=== PATIENT | female | born 1965 | race Caucasian/White ===

== ENCOUNTER → 2017-04-15 | Outpatient (CLI) | payer BC, OTHER | LOC: BMCIMAGING 10:41 | PROVIDERS: ATTEND Nurse Practitioner Adult Health | DX: N64.4 Mastodynia (principal) | CPT/HCPCS: G0204 ==

== ENCOUNTER 2017-10-07 17:49 | Emergency (ER) | payer BC ==
[2017-10-07] MEDS ORDERED: NS 1,000 ML IV ONE ×2 (18:07)
[2017-10-07] MEDS ORDERED: ONDANSETRON 4 MG/2 ML VIAL IVP ONE (18:07)
--- NOTE | 2017-10-07 18:09 | EDPHY ---
H & P Stated Complaint: N/V since 0800, Time Seen by Provider: 10/07/17 17:50 HPI/ROS: CHIEF COMPLAINT: Nausea vomiting HISTORY OF PRESENT ILLNESS: The patient is a 52-year-old healthy female who comes to the emergency department complaining of nausea and vomiting that began 8 o'clock this morning. She was asymptomatic yesterday. She had a normal bowel movement today. No fever. She denies abdominal pain or tenderness. She has a history of several abdominal hernia repairs but no intestinal surgery. No blood in her vomit. No vaginal or urinary symptoms. REVIEW OF SYSTEMS: Constitutional: denies: chills, fever, recent illness, recent injury EENTM: denies: blurred vision, double vision, nose congestion Respiratory: denies: cough, shortness of breath Cardiac: denies: chest pain, irregular heart rate, lightheadedness, palpitations Gastrointestinal/Abdominal: See HPI Genitourinary: denies: dysuria, frequency, hematuria, pain Musculoskeletal: denies: joint pain, muscle pain Skin: denies: lesions, rash, jaundice, bruising Neurological: denies: headache, numbness, paresthesia, tingling, dizziness, weakness Hematologic/Lymphatic: denies: blood clots, easy bleeding, easy bruising Immunologic/allergic: denies: HIV/AIDS, transplant EXAM: GENERAL: Well-appearing, well-nourished and in no acute distress. HEAD: Atraumatic, normocephalic. EYES: Pupils equal round and reactive to light, extraocular movements intact, sclera anicteric, conjunctiva are normal. ENT: TMs normal, nares patent, oropharynx clear without exudates. Moist mucous membranes. NECK: Normal range of motion, supple without lymphadenopathy or JVD. LUNGS: Breath sounds clear to auscultation bilaterally and equal. No wheezes rales or rhonchi. HEART: Regular rate and rhythm without murmurs, rubs or gallops. ABDOMEN: Slightly distended, nontender, normoactive bowel sounds. No guarding , no rebound. No masses appreciated. BACK: No CVA tenderness, no spinal tenderness, step-offs or deformities EXTREMITIES: Normal range of motion, no pitting or edema. No clubbing or cyanosis. NEUROLOGICAL: Cranial nerves II through XII grossly intact. Normal speech, normal gait. 5/5 strength, normal movement in all extremities, normal sensation PSYCH: Normal mood, normal affect. SKIN: Warm, dry, normal turgor, no visible rashes or lesions. Source: Patient Exam Limitations: No limitations - Personal History Current Tetanus Diphtheria and Acellular Pertussis (TDAP): Yes - Medical/Surgical History Hx Asthma: No Hx Chronic Respiratory Disease: No Hx Diabetes: No Hx Cardiac Disease: Yes Hx Renal Disease: No Hx Cirrhosis: No Hx Alcoholism: Yes Hx HIV/AIDS: No Hx Splenectomy or Spleen Trauma: No Other PMH: hernia/abd wall sugical repair 2016 ,htn,gerd - Family History Significant Family History: No pertinent family hx - Social History Smoking Status: Never smoked Alcohol Use: Sober Drug Use: None Constitutional: Initial Vital Signs Temperature (C) 36.6 C 10/07/17 17:50 Heart Rate 78 10/07/17 17:50 Respiratory Rate 18 10/07/17 17:50 Blood Pressure 174/129 H 10/07/17 17:50 O2 Sat (%) 99 10/07/17 17:50 O2 Delivery Mode Room Air Allergies/Adverse Reactions: No Known Allergies Allergy (Unverified 10/16/14 10:54) Home Medications: Medication Instructions Recorded Atenolol [Tenormin] 25 mg PO DAILY 10/16/14 Sertraline HCl [Zoloft] 25 mg PO DAILY 10/16/14 levOFLOXACIN [levAQUIN] 750 mg PO DAILY #3 tab 10/16/14 metroNIDAZOLE [Flagyl] 500 mg PO TID #15 tab 10/16/14 Promethazine HCl [Phenergan 25mg 25 mg PO TID PRN #10 tab 10/07/17 (RX)] Medical Decision Making ED Course/Re-evaluation: 655 patient states that she still feels nauseous but is no longer vomiting. She continues to deny abdominal pain. Her abdominal exam remains benign. I will treat with Phenergan and continue fluids. 7:35 p.m. the patient states that she is feeling completely better. She is eager to go home. She declines further workup or testing or observation. She is asking for prescription for Phenergan. Her abdominal exam remains benign. Differential Diagnosis: Partial list of the Differential diagnosis considered include but were not limited to; gastritis, food poisoning, peptic ulcer disease, withdrawal, intoxication and although unlikely based on the history and physical exam, I also considered head injury, obstruction, ischemia, appendicitis, biliary disease, . I discussed these differential diagnoses and the plan with the patient as well as the usual and expected course. The patient understands that the diagnosis is provisional and that in medicine we are not always correct and that further workup is often warranted. Usual and customary warnings were given. All of the patient's questions were answered. The patient was instructed to return to the emergency department should the symptoms at all worsen or return, otherwise to followup with the physician as we discussed. - Data Points Laboratory Results: Laboratory Results 10/07/17 18:13 10/07/17 18:13 18 18 10/07/17 18:13 18:13 18:13 WBC 4.43 10^3/uL 10^3/uL (3.80-9.50) RBC 4.06 10^6/uL L 10^6/uL (4.18-5.33) Hgb 11.2 g/dL L g/dL (12.6-16.3) Hct 34.4 % L % (38.0-47.0) MCV 84.7 fL fL (81.5-99.8) MCH 27.6 pg L pg (27.9-34.1) MCHC 32.6 g/dL g/dL (32.4-36.7) RDW 15.1 % % (11.5-15.2) Plt Count 319 10^3/uL 10^3/uL (150-400) MPV 9.4 fL fL (8.7-11.7) Neut % (Auto) 45.2 % % (39.3-74.2) Lymph % (Auto) 36.6 % % (15.0-45.0) [place] % (Auto) 13.3 % H % (4.5-13.0) Eos % (Auto) 0.9 % % (0.6-7.6) Baso % (Auto) 3.8 % H % (0.3-1.7) Nucleat RBC Rel Count 0.0 % % (0.0-0.2) Absolute Neuts (auto) 2.00 10^3/uL 10^3/uL (1.70-6.50) Absolute Lymphs (auto) 1.62 10^3/uL 10^3/uL (1.00-3.00) Absolute Monos (auto) 0.59 10^3/uL 10^3/uL (0.30-0.80) Absolute Eos (auto) 0.04 10^3/uL 10^3/uL (0.03-0.40) Absolute Basos (auto) 0.17 10^3/uL H 10^3/uL (0.02-0.10) Absolute Nucleated RBC 0.00 10^3/uL 10^3/uL (0-0.01) Immature Gran % 0.2 % % (0.0-1.1) Immature Gran # 0.01 10^3/uL 10^3/uL (0.00-0.10) Sodium 139 mEq/L mEq/L (135-145) Potassium 4.1 mEq/L mEq/L (3.5-5.2) Chloride 100 mEq/L mEq/L (97-110) Carbon Dioxide 23 mEq/l mEq/l (22-31) Anion Gap 16 mEq/L mEq/L (8-16) BUN 10 mg/dL mg/dL (7-23) Creatinine 0.7 mg/dL mg/dL (0.6-1.0) Estimated GFR > 60 Glucose 113 mg/dL H mg/dL (70-100) Calcium 8.8 mg/dL mg/dL (8.5-10.4) Total Bilirubin 0.5 mg/dL mg/dL (0.1-1.4) Conjugated Bilirubin 0.4 mg/dL mg/dL (0.0-0.5) Unconjugated Bilirubin 0.1 mg/dL mg/dL (0.0-1.1) AST 162 IU/L H IU/L (14-46) ALT 111 IU/L H IU/L (9-52) Alkaline Phosphatase 92 IU/L IU/L (38-126) Total Protein 7.9 g/dL g/dL (6.3-8.2) Albumin 4.3 g/dL g/dL (3.5-5.0) Lipase 207 IU/L IU/L (23-300) Beta HCG, Qual NEGATIVE Medications Given: Discontinued Medications Sodium Chloride (Ns) 1,000 mls @ 0 mls/hr IV EDNOW ONE; Wide Open PRN Reason: Protocol Stop: 10/07/17 18:08 Last Admin: 10/07/17 18:19 Dose: 1,000 mls Sodium Chloride (Ns) 1,000 mls @ 0 mls/hr IV EDNOW ONE; Wide Open PRN Reason: Protocol Stop: 10/07/17 18:08 Last Admin: 10/07/17 18:20 Dose: 1,000 mls Ondansetron HCl (Zofran) 4 mg IVP EDNOW ONE Stop: 10/07/17 18:08 Last Admin: 10/07/17 18:20 Dose: 4 mg Promethazine HCl (Phenergan) 25 mg IVP EDNOW ONE Stop: 10/07/17 18:56 Last Admin: 10/07/17 18:58 Dose: 25 mg Departure - Departure Disposition: Home, Routine, Self-Care Clinical Impression: Vomiting Qualifiers: Vomiting type: unspecified Vomiting Intractability: non-intractable Nausea presence: with nausea Qualified Code(s): R11.2 - Nausea with vomiting, unspecified Condition: Fair Instructions: Acute Nausea and Vomiting (ED) Referrals: ELIAS VICTOR [Other] - As per Instructions Prescriptions: Promethazine HCl [Phenergan 25mg (RX)] 25 mg PO TID PRN #10 tab PRN Reason: Nausea & Vomiting
[2017-10-07 18:25] LABS: PLATELET COUNT 319 10^3/uL (150-400)
[2017-10-07] MEDS ORDERED: PROMETHAZINE HCL 25 MG/ML INJ IVP ONE (18:55)
[2017-10-07 20:10] VITALS: BP 152/79
== END 2017-10-07 20:10 | disposition home or self-care (01) ==
DX: R11.2 Nausea with vomiting, unspecified (principal); E86.9 Volume depletion, unspecified
CPT/HCPCS: 96374; J2405; J2550

== ENCOUNTER 2017-11-10 15:37 | Inpatient (IN) | payer BC ==
[2017-11-10] MEDS ORDERED: NS 500 ML IV ONE ×2 (16:06→16:56)
--- NOTE | 2017-11-10 16:10 | CPEKG ---
Heart Rate: 82 RR Interval: 732 P-R Interval: 156 QRSD Interval: 82 QT Interval: 396 QTC Interval: 463 P Wilcox: 42 QRS Wilcox: 56 T Wave Wilcox: 55 EKG Severity - NORMAL ECG - EKG Impression: SINUS RHYTHM Electronically Signed By: Jenna Aguila 10-Nov-2017 22:49:43
--- NOTE | 2017-11-10 16:17 | EDPHY ---
H & P Time Seen by Provider: 11/10/17 15:51 HPI/ROS: CHIEF COMPLAINT: Fainting HISTORY OF PRESENT ILLNESS: Patient is a 52-year-old female who has had multiple near syncopal and syncopal type episodes. The 1st occurred yesterday while at a softball game. She was watching the game. She felt mildly dizzy. Her vision change. She became very diaphoretic. She almost passed out. She states there is the mathematics academic chair there who"talk me through it."The mathematics academic chair recommended she have her thyroid checked. Today the patient had a repeat episode while with family. She became completely blank and fell. This lasted for less than 1 min. She denies harming herself during the fall. When she awoke she denies any chest pain, shortness of breath or headache. Patient's symptoms resolved until a 3rd episode occurred. Again this was witnessed by her family. She became stiff and shaky. She stared off in space. She had complete blank look for less than 1 min. She then awoke and returned to baseline. Patient has no complaints at this time. REVIEW OF SYSTEMS: My complete review of systems is negative except as mentioned in the HPI. Past Medical/Surgical History: Hernia, hypertension, GERD, anemia, neck pain Past surgical history: Includes neck ablation, hernia repair Social history: The patient does not smoke. She denies drugs. Smoking Status: Never smoked Physical Exam: Vitals noted. 97/66. Heart rate 90. GENERAL: Well-appearing, in no acute distress, alert. HEENT: Eyes normal to inspection, normal pharynx, no signs of dehydration. NECK: [No thyromegaly, no lymphadenopathy, supple. RESPIRATORY: Clear to auscultation bilaterally, no rales, rhonchi or wheezing. CVS: Regular rate and rhythm, no rubs, murmurs, or gallops. ABDOMEN: Soft, nontender, nondistended, no organomegaly. BACK: Normal to inspection, no CVA tenderness. SKIN: Normal color, no rash, warm, dry. No pallor. EXTREMITIES: No pedal edema, no calf tenderness, no Homans sign or cords, no joint swelling. NEURO/PSYCH: Higher functions: Alert and Oriented x3. Normal speech and cognition. Normal mood and affect. Cranial nerves: Normal as tested. Cerebellar: Normal as tested. Good finger to nose, good [id number], normal gait. Peripheral exam: Normal motor exam. Normal sensation. Normal reflexes. Constitutional: Initial Vital Signs Temperature (C) 36.9 C 11/10/17 15:43 Heart Rate 90 11/10/17 15:43 Respiratory Rate 17 11/10/17 15:43 Blood Pressure 97/66 L 11/10/17 15:43 O2 Sat (%) 95 11/10/17 15:43 O2 Delivery Mode Room Air Allergies/Adverse Reactions: No Known Allergies Allergy (Verified 11/10/17 15:39) Home Medications: Medication Instructions Recorded Sertraline HCl [Zoloft] 25 mg PO DAILY 10/16/14 Acetaminophen [Tylenol 325mg (*)] 650 mg PO Q6 PRN 11/10/17 Cyclobenzaprine [Flexeril 10 MG 10 mg PO TID 11/10/17 (*)] Ibuprofen [Motrin (*)] 200 - 400 mg PO TID PRN 11/10/17 Losartan Potassium [Cozaar 50 mg 100 mg PO DAILY 11/10/17 (*)] Nebivolol HCl [Bystolic] 5 mg PO DAILY 11/10/17 traMADol [Ultram 50 mg (*)] 50 mg PO DAILY 11/10/17 Medical Decision Making - Diagnostics Imaging Results: Imaging Impressions Chest X-Ray 11/10/17 16:07 Impression: No evidence for acute cardiopulmonary abnormality. Hiatal hernia. ED Course/Re-evaluation: In the emergency department I discussed possible etiologies with the patient. I answered all her questions. IV was placed. Laboratory studies were obtained. Patient was given normal saline for hydration. EKG shows normal sinus rhythm, normal rate, normal axis, normal intervals. There are no ST or T-wave abnormalities. EKG is normal as interpreted by me. I reviewed the patient's laboratory studies. His CBC showed a mild anemia with hematocrit 32. Previous hematocrit was 34. The patient's chemistry panel showed a sodium 140 and potassium of 4.2. Chloride was 102. Carbon dioxide was low at 21. Anion gap was elevated at 17. BUN was elevated 24 and creatinine was elevated 1.5. Glucose was normal 111. Total bilirubin was normal. AST and ALT were elevated at 190 01/12/2011 respectively. Troponin was negative. Lipase elevated at 374. Repeat blood pressure was 81/60. I rechecked the patient. She was not lightheaded or dizzy. She was given normal saline 500 mL IV. Rechecked the patient on numerous occasions. She was stable throughout her stay. I discussed case with Dr. Martinez. He will admit the patient for further care. Differential Diagnosis: My differential includes but is not limited to near-syncope, syncope, dysrhythmia, ACS, acute NE, electrolyte abnormality, sugar abnormality, dehydration - Data Points Laboratory Results: Laboratory Results 11/10/17 16:08 11/10/17 16:08 11/10/17 11/10/17 11/10/17 16:08 16:08 16:08 WBC RBC Hgb Hct MCV MCH MCHC RDW Plt Count MPV Neut % (Auto) Lymph % (Auto) [place] % (Auto) Eos % (Auto) Baso % (Auto) Nucleat RBC Rel Count Absolute Neuts (auto) Absolute Lymphs (auto) Absolute Monos (auto) Absolute Eos (auto) Absolute Basos (auto) Absolute Nucleated RBC Immature Gran % Immature Gran # PT 14.6 SEC SEC (12.0-15.0) INR 1.12 (0.83-1.16) APTT 25.8 SEC SEC (23.0-38.0) Sodium 140 mEq/L mEq/L (135-145) Potassium 4.2 mEq/L mEq/L (3.5-5.2) Chloride 102 mEq/L mEq/L (97-110) Carbon Dioxide 21 mEq/l L mEq/l (22-31) Anion Gap 17 mEq/L H mEq/L (8-16) BUN 24 mg/dL H mg/dL (7-23) Creatinine 1.5 mg/dL H mg/dL (0.6-1.0) Estimated GFR 36 Glucose 111 mg/dL H mg/dL (70-100) Calcium 9.4 mg/dL mg/dL (8.5-10.4) Total Bilirubin 0.5 mg/dL mg/dL (0.1-1.4) Conjugated Bilirubin 0.4 mg/dL mg/dL (0.0-0.5) Unconjugated Bilirubin 0.1 mg/dL mg/dL (0.0-1.1) AST 197 IU/L H IU/L (14-46) ALT 111 IU/L H IU/L (9-52) Alkaline Phosphatase 96 IU/L IU/L (38-126) Troponin I < 0.012 ng/mL ng/mL (0.000-0.034) Total Protein 8.3 g/dL H g/dL (6.3-8.2) Albumin 4.5 g/dL g/dL (3.5-5.0) Lipase 374 IU/L H IU/L (23-300) TSH 5.660 uIU/mL H uIU/mL (0.465-4.680) Beta HCG, Qual NEGATIVE Urine Color Urine Appearance Urine pH Ur Specific Cory Urine Protein Urine Ketones Urine Blood Urine Nitrate Urine Bilirubin Urine Urobilinogen Ur Leukocyte Esterase Urine Glucose 11/10/17 11/10/17 16:08 15:48 WBC 6.03 10^3/uL 10^3/uL (3.80-9.50) RBC 3.97 10^6/uL L 10^6/uL (4.18-5.33) Hgb 10.5 g/dL L g/dL (12.6-16.3) Hct 32.3 % L % (38.0-47.0) MCV 81.4 fL L fL (81.5-99.8) MCH 26.4 pg L pg (27.9-34.1) MCHC 32.5 g/dL g/dL (32.4-36.7) RDW 16.7 % H % (11.5-15.2) Plt Count 220 10^3/uL 10^3/uL (150-400) MPV 10.3 fL fL (8.7-11.7) Neut % (Auto) 49.9 % % (39.3-74.2) Lymph % (Auto) 33.3 % % (15.0-45.0) [place] % (Auto) 12.3 % % (4.5-13.0) Eos % (Auto) 2.0 % % (0.6-7.6) Baso % (Auto) 2.3 % H % (0.3-1.7) Nucleat RBC Rel Count 0.0 % % (0.0-0.2) Absolute Neuts (auto) 3.01 10^3/uL 10^3/uL (1.70-6.50) Absolute Lymphs (auto) 2.01 10^3/uL 10^3/uL (1.00-3.00) Absolute Monos (auto) 0.74 10^3/uL 10^3/uL (0.30-0.80) Absolute Eos (auto) 0.12 10^3/uL 10^3/uL (0.03-0.40) Absolute Basos (auto) 0.14 10^3/uL H 10^3/uL (0.02-0.10) Absolute Nucleated RBC 0.00 10^3/uL 10^3/uL (0-0.01) Immature Gran % 0.2 % % (0.0-1.1) Immature Gran # 0.01 10^3/uL 10^3/uL (0.00-0.10) PT INR APTT Sodium Potassium Chloride Carbon Dioxide Anion Gap BUN Creatinine Estimated GFR Glucose Calcium Total Bilirubin Conjugated Bilirubin Unconjugated Bilirubin AST ALT Alkaline Phosphatase Troponin I Total Protein Albumin Lipase TSH Beta HCG, Qual Urine Color YELLOW Urine Appearance HAZY Urine pH 5.0 (5.0-7.5) Ur Specific Cory 1.011 (1.002-1.030) Urine Protein NEGATIVE (NEGATIVE) Urine Ketones NEGATIVE (NEGATIVE) Urine Blood NEGATIVE (NEGATIVE) Urine Nitrate NEGATIVE (NEGATIVE) Urine Bilirubin NEGATIVE (NEGATIVE) Urine Urobilinogen NEGATIVE EU EU (0.2-1.0) Ur Leukocyte Esterase NEGATIVE (NEGATIVE) Urine Glucose NEGATIVE (NEGATIVE) Medications Given: Acetaminophen (Tylenol) 650 mg PO Q4HRS PRN PRN Reason: Pain, Mild/Fever, Can Take PO Stop: 05/09/18 17:57 Last Admin: 11/10/17 18:42 Dose: 650 mg Discontinued Medications Sodium Chloride (Ns) 500 mls @ 1,000 mls/hr IV EDNOW ONE PRN Reason: Protocol Stop: 11/10/17 16:35 Last Admin: 11/10/17 16:11 Dose: 500 mls Sodium Chloride (Ns) 500 mls @ 0 mls/hr IV ONCE ONE PRN Reason: Wide Open Stop: 11/10/17 16:57 Last Admin: 11/10/17 17:00 Dose: 500 mls Departure - Departure Disposition: [facility] Acute Clinical Impression: Syncope Qualifiers: Syncope type: unspecified Qualified Code(s): R55 - Syncope and collapse Condition: Good
[2017-11-10 16:19] LABS: PLATELET COUNT 220 10^3/uL (150-400)
[2017-11-10 16:28] LABS: INR 1.12 (0.83-1.16); PROTIME(PATIENT) 14.6 SEC (12.0-15.0)
[2017-11-10] MEDS ORDERED: ONDANSETRON DISINTEGRATING 4 MG TAB PO PRN (17:58)
[2017-11-10] MEDS ORDERED: ONDANSETRON 4 MG/2 ML VIAL IVP PRN (17:58)
[2017-11-10] MEDS ORDERED: ZOLPIDEM TARTRATE 5 MG TAB PO PRN (17:58)
[2017-11-10] MEDS ORDERED: ACETAMINOPHEN 500 MG TAB ONE (18:21)
--- NOTE | 2017-11-10 18:32 | PDGENHP ---
History and Physical History and Physical: CC: Multiple syncopes HISTORY: This woman comes into the ER today after having 3 syncopal episodes at home today. She was with her family when these occurred. They were preceded by some lightheadedness. There were brief in duration without any evidence of seizure and without any postictal spells. The 3rd 1 occurred in the presence of paramedics who noted that she did have a lower blood pressure. She was transported here to the hospital and received IV fluids in route and also some IV fluids here so far. She is feeling notably better in fact pretty close to normal. She had 1 new pre syncopal spell yesterday that was associated with some sweats and nausea but no pain or dyspnea. However she notes that over the last 2 weeks she has had approximately twice daily brief episodes of rapid chest palpitations associated with a sense of dyspnea. These last anywhere from several minutes up towards 20 or 30 min without any pain or fever or nausea. She has had no prior episodes of syncope in her life prior to this. Last night she vomited twice but otherwise she denies any recent nausea vomiting diarrhea or bleeding. She has been eating and drinking normally recently. Notably she such does take beta-kaleigh in 25 mg of atenolol daily chronically. This was given to her when she was found to have a chronic persistent constant tachycardia greater than 100. She does not recall having had a EKG, heart monitor, other heart is assessments, or thyroid assessment at that time and does not recall being given any diagnosis as to why her heart rate was fast. She has had no other recent medication changes. She has had no recent fevers or other symptoms of acute illness the was seen here with an episode of viral gastroenteritis 1 month ago that lasted about 1 day and recovered nicely. She has not traveled recently or had any recent immobilization or surgeries. She does not notice any pleuritic pain in the chest or any leg pain or swelling. She has no history of thromboembolic disease, pulmonary disease, or heart disease other than as mentioned above. Notably she does drink alcohol she tells me 3 vodka tonics daily though her sister confidentially tells nursing staff she may drink more than that. She does not use any tobacco and does not use any street drugs. There is no family history of thromboembolic disease, sudden , heart disease. There is a family history of thyroid problems. In addition to the above, she tells me that if she has had recently some occasional left upper quadrant abdominal cramping that last a few minutes at a time not triggered by anything in particular. For the last 2 days she has noted significant bloating in her abdomen. ROS: A comprehensive 10 system review revealed no other significant findings PAST MEDICAL HISTORY: Injury with chronic back and neck pain when and large box fell on her work; chronic pain syndrome related to that taking tramadol and with ongoing physical therapy and other therapies Inguinal hernia repair which was complicated and required secondary wound repair On my review of the CT scan from 1 year ago she was noted to have hepatic steatosis Blood transfusion with a surgery in 1995 Depression anxiety Chronic alcohol abuse Chronic persistent constant tachycardia chronically treated with atenolol FAMILY MEDICAL HISTORY: No cardiac thromboembolic or pulmonary diseases Graves disease in a sister Hypothyroidism and melanoma in her mother, mother with pulmonary hypertension presumed treatment for melanoma SOCIAL HISTORY: On disability for her back At least 3 vodka drinks daily as described above No tobacco or street drugs or marijuana MEDICATIONS: The patients list has been reconciled by our clinical pharmacist in the EMR. I have reviewed the list and ordered appropriate medicines. 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: Normal sinus rhythm Examination: General: alert, oriented, good mentation, relaxed Skin: warm, dry, good color, no rash; good distal capillary refill HEENT: normal currently does not have dry oral mucosa Neck: no mass or jvd Resps: relaxed Lungs: clear breath sounds Heart: regular, no murmur Pulses: Palpable but diminished pulses at the wrists and feet Abdomen: Distended and somewhat tense but not tender, with no other palpable abnormalities, bowel sounds present Upper Extremities: normal Lower Extremities: no edema, warm No Bleeding or bruising Neurologic: normal speech/language, 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 I compared this with last month she was at 11.4 and MCV 84 then and the last study we have his 2010 when her hemoglobin was 14. Platelets normal Normal coag studies today Chemistry today with BUN 24 creatinine 1.5 with her creatinine 0.71 month ago, anion gap 17 with CO2 21, glucose 111, AST 197 ALT 111 are similar to what she had 1 month ago with normal bilirubin on both occasions Slightly high atrial protein today 0.3 TSH 5.6 Negative test RADIOLOGY STUDIES: I reviewed chest x-ray done in the ER today and I do not see any abnormalities on this single-view study 12 LEAD EKG: Done in the ER today my review of the tracing shows a sinus rhythm with no particular abnormalities ASSESSMENT: -multiple syncopal spells today after near syncopal spell yesterday -acute hypotension -nausea vomiting last night after her near-syncope -some evidence of acute dehydration at this time based on blood tests -recent onset 2 weeks of twice daily episodes of rapid palpitations with dyspnea but without associated symptoms, unprovoked at rest -new symptom and finding of tensely distended abdomen by symptoms and examination today; nothing to suggest peritonitis -new onset of worsening microcytic anemia noted today, worse than a month ago, which was worse than 4 years ago; suspect iron deficiency -new finding of elevated hepatic transaminases 1 month ago persist at this time , mild and unchanged with normal bilirubin and INR -history of blood transfusion 1995 -chronic significant alcohol abuse, suspected heavier than she is telling me based on her story of what her sister tells me and the staff * Consider risk for withdrawal * Suspect vitamin deficiencies and will replace The underlying etiology of her current syncopal spells and hypotension is uncertain. Her blood tests would suggest dehydration though she was having syncopal symptoms before she vomited twice yesterday, before that had no evidence of fluid losses. I would be worried about PE particularly with her symptoms of recurrent breathlessness and tachycardia over the last week or 2. A primary arrhythmia could occur though she does not have specific evidence of heart disease otherwise at this time. I do not think this is ischemic disease but would probably need to consider assessing for that as we go along. She should have her heart assessed with echo. Her alcohol use and her beta-kaleigh could be contributing factors to her syncope spells but I do not think are stand alone primary causes. At the moment I do not have much to going to suggest infection but with her tense abdomen 1 could worry about some kind of spontaneous bacterial peritonitis, though at the moment I do not think she has a cirrhotic ascites given all of her lab values. She certainly would be at risk of cirrhotic ascites with her alcohol use and known prior hepatic steatosis , also history of transfusion. The underlying etiology of her tense distended abdomen could be an ascites related to either liver disease or to a malignancy such as ovarian. It could as well be constipation and in fact she has a mildly elevated TSH which could cause that and has had some recent abdominal cramps. She does not have symptoms of a colitis. The new onset of microcytic anemia is probably iron deficiency, which again could raise suspicion for potentially malignancy, and 1 could proposed a distended abdomen from constipation from a colon malignancy or other GI malignancy. PLANS: -inpatient admission -will hold her beta-blockers at this time -continue aggressive hydration -ongoing cardiac monitoring -will check a cardiac troponin -check echocardiogram -will do an ultrasound of her legs right now to look for thrombus -if no clots in her legs will do a CT of the chest as soon as the creatinine has been shown to stabilize, hopefully this evening if necessary -will not give any anticoagulation unless clot is demonstrated in the presence of her current hypotension and new onset microcytic anemia -ultrasound of the abdomen to assess for possible ascites and further assessment if that is found will include looking for infection, cirrhosis, malignancy -iron studies are ordered -will check hepatitis C -DVT prophylaxis with SCDs only for the moment -will need outpatient GI workup or possibly inpatient to look at her iron deficiency -iron supplements -watch closely for any developing signs of alcohol withdrawal -thiamin replacement I reviewed all the details above with the patient and her family at bedside and answered their questions. I have reviewed the patient's case in detail with Dr. Jenna Aguila I have reviewed the patient's past medical records as part of this assessment, including previous ER visits and old laboratory data
--- NOTE | 2017-11-10 18:32 | HOSPPROG ---
Hospitalist Progress Note Assessment/Plan: . Objective: Vital Signs Temp Pulse Resp BP Pulse Ox 36.9 C 74 16 102/76 97 11/10/17 15:43 11/10/17 18:07 11/10/17 18:07 11/10/17 18:07 11/10/17 18:07 PT 14.6 SEC (12.0-15.0) 11/10/17 16:08 INR 1.12 (0.83-1.16) 11/10/17 16:08 ICD10 Worksheet Patient Problems: Problems Problem Status Onset Syncope Acute
[2017-11-10] MEDS: ACETAMINOPHEN 325 MG TAB PO PRN ×2 (18:42→23:58)
[2017-11-10 21:00] LABS: PLATELET COUNT 184 10^3/uL (150-400)
[2017-11-10] MEDS: CYCLOBENZAPRINE 10 MG TAB PO SCH (21:32)
[2017-11-11] MEDS: NS 1,000 ML IV SCH ×2 (04:39→13:25)
[2017-11-11 05:11] LABS: PLATELET COUNT 162 10^3/uL (150-400)
[2017-11-11 05:22] LABS: INR 1.22 (0.83-1.16); PROTIME(PATIENT) 15.6 SEC (12.0-15.0)
[2017-11-11 06:21] LABS: HEPATITIS C ANTIBODY TOTAL NEGATIVE (NEGATIVE)
--- NOTE | 2017-11-11 08:54 | CPEKG ---
Heart Rate: 67 RR Interval: 896 P-R Interval: 172 QRSD Interval: 78 QT Interval: 440 QTC Interval: 465 P Maspeth: 66 QRS Maspeth: 63 T Wave Maspeth: 49 EKG Severity - NORMAL ECG - EKG Impression: SINUS RHYTHM Electronically Signed By: Yudy Deleon 12-Nov-2017 18:12:43
[2017-11-11] MEDS ORDERED: THIAMINE HCL 100 MG TAB PO SCH (09:00)
[2017-11-11] MEDS: FERRO-SEQUELS 65 MG TAB.ER PO SCH ×2 (09:58→22:07)
[2017-11-11] MEDS: traMADol 50 MG TAB PO SCH (09:58)
[2017-11-11] MEDS: CYCLOBENZAPRINE 10 MG TAB PO SCH ×3 (09:58→22:06)
[2017-11-11] MEDS: SERTRALINE HCL 25 MG TAB PO SCH (09:58)
--- NOTE | 2017-11-11 10:18 | ECHO ---
[email or web address] [address] [address] Main: [phone] Fax: Transthoracic Echocardiogram Name: HUY REED MR#: [id number] Study Date: 11/11/2017 Study Time: 08:46 AM Date of : 1965 Age: 52 year(s) Height: 170.2 cm (67 in.) Weight: 74.39 kg (164 lb.) BSA: 1.86 m2 Gender: Female Examination: Echo Indication: Cardiac: syncope, tachycardia Image Quality: Adequate Contrast: Requested by: Theodore Martinez BP: 156 mmHg/91 mmHg Heart Rate: Rhythm: Normal sinus rhythm Indication: Cardiac: syncope, tachycardia Procedure Staff Workers' Compensation Magistrate: Beulah Padilla [facility] Reading Physician: Emiliano Alas MD Requesting Provider: Conclusions: Normal global systolic LV function. EF is 67 %. Mild mitral valve regurgitation is present. Trivial to mild aortic valve regurgitation. Mild tricuspid regurgitation is present. Right ventricular systolic pressure measures 30mmHg. Measurements: Chambers Valvular Assessment AV/MV Valvular Assessment TV/PV Normal Normal Normal Name Value Range Name Value Range Name Value Range Ao Hermelinda (MM): 2.9 cm (2.2 cm-3.7 AV Vmax: 1.28 m/s (1 m/s-1.7 TR Vmax: 2.51 mm/s ( - ) cm) m/s) TR PGmax: 25 mmHg ( - ) IVSd (2D): 0.6 cm (0.6 cm-1.1 AV maxP mmHg ( - ) syst. PAP: 30 mmHg ( - ) cm) LVOT Vmax: 1.07 m/s (0.7 m/s-1.1 PV Vmax: 0.89 m/s (0.6 m/s-0.9 LVDd (2D): 4.1 cm (3.9 cm-5.3 m/s) m/s) cm) MV E Vmax: 0.62 m/s ( - ) PV PGmax: 3 mmHg ( - ) LVDs (2D): 2.8 cm (2.1 cm-4 MV A Vmax: 0.48 m/s ( - ) cm) MV E/A: 1.29 ( - ) LVPWd (2D): 0.9 cm ( - ) LVEF (BP): 67 % (>=55 %) RVDd(2D): 2.8 cm (1.9 cm-3.8 cmmm) Continued Measurements: Chambers Valvular Assessment AV/MV Valvular Assessment TV/PV Name Value Name Value Name Value LADs: 2.8 cm MV DecTime: 208 m/s CVP (est.): 5 mmHg LADs Lon.5 cm MV E/E' Septal: 7.10 Patient: HUY REED Study Date: 11/11/2017 Page 1 of 2 08:46 AM LA Area: 15.8 cm2 MV E/E' Lateral: 6.80 LA Volume: 45 ml LA Volume Index: 24.2 ml/m2 RA Area: 13.5 cm2 Additional Vessels Name Value Ao Ascendin.6 cm Findings: Left Ventricle: Normal size left ventricle. No LV hypertrophy. Normal global systolic LV function. EF is 67 %. No regional wall motion abnormality. Normal diastolic LV function. Right Ventricle: Normal size right ventricle. Normal RV function. Left Atrium: The left atrium is normal in size. Right Atrium: The right atrium is normal in size. Mitral Valve: The mitral valve is normal in appearance and function. Mild mitral valve regurgitation is present. No mitral stenosis is present. Aortic Valve: The aortic valve is tri-leaflet and functions normally. Trivial to mild aortic valve regurgitation. No aortic valve stenosis is present. Tricuspid Valve: The tricuspid valve is normal in appearance and function. Mild tricuspid regurgitation is present. Right ventricular systolic pressure measures 30mmHg. The pulmonary artery pressure is normal. Pulmonic Valve: The pulmonic valve is normal in appearance and function. There is no pulmonic regurgitation seen. Aorta: The aorta is normal. Normal size aortic root measuring 2.9 cm. Normal size ascending aorta measuring 2.6 cm. IVC: The IVC is normal sized. Pericardium: No pericardial effusion. (No Signature Object) Patient: HUY REED Study Date: 11/11/2017 Page 2 of 2 08:46 AM [id number]
--- NOTE | 2017-11-11 11:23 | PDMN ---
Medical Necessity Medical necessity: Patient meets inpatient criteria per physician note and [facility] M -123 Dehydration (syst B/P in 80's in ED after mult syncopal episodes earlier in the day; anion gap acidosis of 17; elevated hepatic tranaminases and worsening microcytic anemia; Creat 1.5, to 1.6 after hydration; anticipated LOS > 2 midnights for ongoing IV hydration, additional evaluation/testing for underlying etiology.)
--- NOTE | 2017-11-11 13:41 | ASMTCASEMG ---
Living Arrangements What is your living Answers: Alone arrangement? Who do you live with? Type Of Residence What kind of residence do Answers: House you live in? Discharge Plan Comments Coordination Status Comments Notes: Patient is a 52yo single female who was admitted through the ER for 3 syncopal episodes that occurred when she was with her family. The episodes were brief in duration without evidence of seizure. Patient has hx of depression and anxiety, chronic alcohol abuse, and chronic back pain. No therapies have been ordered currently. D/C plan TBD.CM will follow. Date Signed: 11/11/2017 01:41 PM Electronically Signed By:Phuong Hartman LCSW
[2017-11-11] MEDS ORDERED: NS 1,000 ML IV ONE (14:40)
[2017-11-11] MEDS: THIAMINE HCL 500 MG in NS 100 ML IV SCH (15:55)
[2017-11-11] MEDS: ACETAMINOPHEN 325 MG TAB PO PRN (16:03)
[2017-11-11] MEDS ORDERED: IOPAMIDOL (ISOVUE-300) 100 ML BTL ONE (17:24)
--- NOTE | 2017-11-11 18:41 | HOSPPROG ---
Hospitalist Progress Note Assessment/Plan: 52 yo F with hx of HTN as well as accident leading to concussion and inability to work for nearly 1 year pw several bouts of near syncope # near syncope: 3 episodes over the last several days, in the setting of hypotension and in description sounds most c/w vasovagal episode. Echocardiogram without any structural abnormalities and normal EF. ECG prsonally reviewed with sinus rhythm. BP meds held, monitoring on tele. # abdominal distension/tension: abdominal wall noted to be quite tense, nearly rigid, without significant tenderness. Abd US/abd xray performed earlier non diagnostic of anything other than fatty liver, abd CT to f/u personally reviewed showing only hepatic steatosis unchanged from 2015. Unclear etiology- no erythema etc. LFTs/lipase mildly elevated, hep serologies pending # etoh abuse: patient reports drinking 2-3 drinks/night and sometimes more for the last year, she has had minor w/d sxs in the past but none currently. Will place on CIWA, start MVI/thiamine/folate. # silvia: improved with IVF but still mildly elevated, imaging of kidneys unremarkable, uop good # anemia: normocytic with stuides c/w iron deficiency, suspect mixed picture and perhaps normocytic only due to drinking history, patient has had colonoscopy 3 years ago that was unremarkable. Will check hemoccult and trend. 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 Old records reviewed and summarized as above. Care plan reviewed with patients mother present at bedside. Subjective: no significant overnight events, patient feeling a bit better but abdomen still distended Objective: Vital Signs Temp Pulse Resp BP Pulse Ox 36.4 C 65 20 144/89 H 98 11/11/17 15:26 11/11/17 15:26 11/11/17 15:26 11/11/17 15:26 11/11/17 15:26 Laboratory Results 11/11/17 04:39 11/11/17 04:39 11/10/17 11/11/17 11/12/17 05:59 05:59 05:59 Intake Total 1205 1000 Output Total 700 1400 Balance 505 -400 PT 15.6 SEC (12.0-15.0) H 04/30/18 04:39 INR 1.22 (0.83-1.16) H 11/11/17 04:39 awake alert anicteric op clear rrr no mrg cta b tense bs present no cce warm dry well perfused oriented appropriate tongue fasciculations ICD10 Worksheet Patient Problems: Problems Problem Status Onset Syncope Acute
[2017-11-11] MEDS ORDERED: MAGNESIUM HYDROXIDE 30 ML UDCUP PO PRN (18:42)
[2017-11-11] MEDS ORDERED: POLYETHYLENE GLYCOL 3350 17 GM PKT PO PRN (18:42)
[2017-11-11] MEDS ORDERED: LACTULOSE 20 GM/30 ML UDCUP PO PRN (18:42)
[2017-11-11] MEDS ORDERED: BISACODYL 10 MG SUPP PR PRN (18:42)
[2017-11-11] MEDS: LORazepam 2 MG/ML INJ IVP PRN ×2 (18:51→22:21)
[2017-11-11] MEDS: SENNOSIDES/DOCUSATE SODIUM TAB PO SCH (22:05)
[2017-11-12 05:11] LABS: PLATELET COUNT 174 10^3/uL (150-400)
[2017-11-12] MEDS: SERTRALINE HCL 25 MG TAB PO SCH (10:22)
[2017-11-12] MEDS: FERRO-SEQUELS 65 MG TAB.ER PO SCH ×2 (10:23→21:11)
[2017-11-12] MEDS: FOLIC ACID 1 MG TAB PO SCH (10:23)
[2017-11-12] MEDS: MULTIVITAMINS 1 EACH TAB PO SCH (10:23)
[2017-11-12] MEDS: CYCLOBENZAPRINE 10 MG TAB PO SCH ×3 (10:23→21:12)
[2017-11-12] MEDS: traMADol 50 MG TAB PO SCH (10:26)
[2017-11-12] MEDS: SENNOSIDES/DOCUSATE SODIUM TAB PO SCH ×2 (10:27→21:57)
[2017-11-12] MEDS: THIAMINE HCL 500 MG in NS 100 ML IV SCH (10:57)
--- NOTE | 2017-11-12 12:22 | ASMTCMCOM ---
CM Note CM Note Notes: Met with patient to complete CAGE and give her resources. Identified anxiety tends to drive her difficulty with getting to sleep and staying asleep which then drives her choices to use alcohol to reduce anxitey and sleep. Patient is seeing a PA as her PCP. She was encouraged to make an appointment to revisit the issues and get support with possible medical strategies. Patient has good insight capacity and recognizes she needs to change some patterns of coping and will need support to stay on course with the changes. Spoke with Dr. Caballero who has also spoken with patient and will address some of the follow up needs patient will have at d/c. Patient was given information and resources on anxiety and depression as well. Patient will most likely d/c home today independently. Patient will follow up with outpatient resources. CM available if new d/c needs arise. Date Signed: 11/12/2017 12:21 PM Electronically Signed By:Phuong Hartman LCSW
--- NOTE | 2017-11-12 12:32 | ASMTCAGE ---
CAGE Do you feel you ought to Answers: Yes cut down on your drinking or drug use? Do people annoy you by Answers: No criticizing your drinking or drug use? Do you feel guilty about Answers: Yes your drinking or drug use? 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 Additional Comments Drinking in the morning has just recently developed per patient Date Signed: 11/12/2017 12:32 PM Electronically Signed By:Phuong Hartman LCSW
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
[2017-11-12] MEDS: ACETAMINOPHEN 325 MG TAB PO PRN (13:31)
[2017-11-12] MEDS: LORazepam 2 MG/ML INJ IVP PRN ×2 (15:45→22:03)
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
[2017-11-12] MEDS ORDERED: traMADol 50 MG TAB PO PRN (21:01)
[2017-11-12] MEDS: LORazepam 1 MG TAB PO PRN (21:11)
[2017-11-13] MEDS: LORazepam 2 MG/ML INJ IVP PRN ×2 (02:39→20:21)
[2017-11-13 05:45] LABS: PLATELET COUNT 182 10^3/uL (150-400)
[2017-11-13] MEDS: THIAMINE HCL 500 MG in NS 100 ML IV SCH (10:46)
[2017-11-13] MEDS: MULTIVITAMINS 1 EACH TAB PO SCH (10:47)
[2017-11-13] MEDS: FERRO-SEQUELS 65 MG TAB.ER PO SCH ×2 (10:47→20:21)
[2017-11-13] MEDS: FOLIC ACID 1 MG TAB PO SCH (10:47)
[2017-11-13] MEDS: CYCLOBENZAPRINE 10 MG TAB PO SCH ×3 (10:47→21:25)
[2017-11-13] MEDS: SERTRALINE HCL 25 MG TAB PO SCH (10:47)
[2017-11-13] MEDS: SENNOSIDES/DOCUSATE SODIUM TAB PO SCH ×2 (10:48→21:27)
[2017-11-13] MEDS ORDERED: LORazepam 1 MG TAB PO PRN (12:16)
[2017-11-13] MEDS: ACETAMINOPHEN 325 MG TAB PO PRN ×2 (12:57→20:20)
[2017-11-13] MEDS: LORazepam 1 MG TAB PO PRN ×2 (12:57→18:10)
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
[2017-11-14] MEDS: ACETAMINOPHEN 325 MG TAB PO PRN (08:01)
[2017-11-14] MEDS: FERRO-SEQUELS 65 MG TAB.ER PO SCH (08:01)
[2017-11-14] MEDS: CYCLOBENZAPRINE 10 MG TAB PO SCH (08:02)
[2017-11-14] MEDS: MULTIVITAMINS 1 EACH TAB PO SCH (08:02)
[2017-11-14] MEDS: SERTRALINE HCL 25 MG TAB PO SCH (08:02)
[2017-11-14] MEDS: FOLIC ACID 1 MG TAB PO SCH (08:02)
[2017-11-14] MEDS: SENNOSIDES/DOCUSATE SODIUM TAB PO SCH (08:03)
[2017-11-14] MEDS ORDERED: THIAMINE HCL 100 MG TAB PO SCH (09:00)
[2017-11-14 11:28] VITALS: BP 143/93
[2017-11-14] MEDS ORDERED: HYDROCODONE/APAP 5/325 TAB PO PRN (12:43)
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
== END 2017-11-14 14:15 | disposition home or self-care (01) | DRG 315 ==
LOC: OBSVTOIN 17:58 → F3E 21:00
PROVIDERS: ADMIT Internal Medicine; ATTEND Internal Medicine
DX: I95.89 Other hypotension (principal); K56.7 Ileus, unspecified; N17.9 Acute kidney failure, unspecified; E86.0 Dehydration; F07.81 Postconcussional syndrome; D50.9 Iron deficiency anemia, unspecified; F10.10 Alcohol abuse, uncomplicated; I10 Essential (primary) hypertension
CPT/HCPCS: 82607-90; 86707-90; A9537; G0472; J2060; J3411; Q9967

== ENCOUNTER 2018-05-02 17:15 | Emergency (ER) | payer BC ==
[2018-05-02 18:47] LABS: PLATELET COUNT 183 10^3/uL (150-400)
--- NOTE | 2018-05-02 18:57 | EDPHY ---
H & P Stated Complaint: Low Na/SOB sent by MChrissyDChrissy Time Seen by Provider: 05/02/18 18:32 HPI/ROS: CHIEF COMPLAINT: Low sodium HISTORY OF PRESENT ILLNESS: 52-year-old female with hypertension presents with an outpatient low sodium level. She was seen by her primary care physician 3 days ago and routine labs were sent. She received a phone call today, telling her that her sodium level was low. She has been eating and drinking normally and has not felt weak or confused. Intermittent shortness of breath over the past few weeks, without obvious alleviating or aggravating factor. Saw her emergency medical service manager today for follow-up of hypertension and was told to continue losartan. No associated symptoms. 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 REVIEW OF SYSTEMS: complete 10 point ROS reviewed and is negative except for the noted elements in the HPI Source: Patient - Personal History LMP (Females 10-55): 1-7 Days Ago Current Tetanus/Diphtheria Vaccine: Yes - Medical/Surgical History Hx Asthma: No Hx Chronic Respiratory Disease: No Hx Diabetes: No Hx Cardiac Disease: Yes Hx Renal Disease: No Hx Cirrhosis: No Hx Alcoholism: Yes Hx HIV/AIDS: No Hx Splenectomy or Spleen Trauma: No Other PMH: hernia/abd wall sugical repair 2016 ,htn,gerd - Social History Smoking Status: Never smoked Alcohol Use: Sober Drug Use: None Additional Social History: Unable Sebastian - Physical Exam Exam: General Appearance: Alert, pleasant Eyes: Pupils equal and round, no conjunctival pallor or injection ENT, Mouth: Mucous membranes moist Neck: Normal inspection Respiratory: Lungs are clear to auscultation Cardiovascular: Regular rate and rhythm, no murmur Gastrointestinal: Abdomen is soft and nontender Neurological: A&O, nonfocal, normal gait Skin: Warm and dry, no rash Extremities: Nontender, no pedal edema Psychiatric: Mood and affect normal Constitutional: Initial Vital Signs Temperature (C) 36.5 C 05/02/18 17:32 Heart Rate 92 05/02/18 17:32 Respiratory Rate 18 05/02/18 17:32 Blood Pressure 116/82 H 05/02/18 17:32 O2 Sat (%) 95 05/02/18 17:32 O2 Delivery Mode Room Air Allergies/Adverse Reactions: No Known Allergies Allergy (Verified 05/02/18 17:35) Home Medications: Medication Instructions Recorded Sertraline HCl [Zoloft 25mg (*)] 25 mg PO DAILY 10/16/14 Acetaminophen [Tylenol 325mg (*)] 650 mg PO Q6 PRN 11/10/17 Cyclobenzaprine [Flexeril 10 MG 10 mg PO TID 11/10/17 (*)] Ibuprofen [Motrin (*)] 200 - 400 mg PO TID PRN 11/10/17 traMADol [Ultram 50 mg (*)] 50 mg PO DAILY 11/10/17 Folic Acid [Folic Acid 1 MG (*)] 1 mg PO DAILY #30 tab 11/14/17 Hydrocodone/APAP 5/325 [[place] 1 tab PO Q4HRS PRN #20 tab 11/14/17 5/325 (*)] LORazepam [Ativan (*)] 1 mg PO Q4 PRN #20 tab 11/14/17 Ondansetron Odt [Zofran Odt 4 mg 4 mg PO Q4HRS PRN #20 tab 11/14/17 (*)] Thiamine HCl [Vitamin B-1] 100 mg PO DAILY #30 tab 11/14/17 Medical Decision Making - Diagnostics EKG Interpretation: EKG interpreted by me reveals normal sinus rhythm, rate 88, no ST or T segment changes. Interpretation: Normal EKG Imaging Results: Imaging Impressions Chest X-Ray 05/02/18 18:48 Impression: 1. Moderate hiatal hernia. 2. No pneumonia. Imaging: I viewed and interpreted images myself ED Course/Re-evaluation: Laboratory results discussed with the patient. No evidence of hyponatremia. LFTs are slightly elevated. She has been told in the past that this is because of excessive alcohol intake. Chest x-ray is normal and EKG reveals normal sinus rhythm, without evidence of ischemia. Vital signs are normal, including oxygen saturation and she has no risk factors for pulmonary embolism. I do not feel that evaluation for PE is indicated. I feel that she is safe and stable for discharge home. She will follow up with Dr. Resendez in the office regarding the intermittent shortness of breath. She will follow up with her primary care physician regarding lab abnormalities. Differential Diagnosis: Differential diagnosis for shortness of breath includes though is not limited to dysrhythmia, pulmonary embolism, pneumonia, pneumothorax, anxiety. - Data Points Laboratory Results: Laboratory Results 05/02/18 18:40 05/02/18 18:40 05/02/18 05/02/18 18:40 18:40 WBC 5.52 10^3/uL 10^3/uL (3.80-9.50) RBC 3.94 10^6/uL L 10^6/uL (4.18-5.33) Hgb 14.4 g/dL g/dL (12.6-16.3) Hct 38.5 % % (38.0-47.0) MCV 97.7 fL fL (81.5-99.8) MCH 36.5 pg H pg (27.9-34.1) MCHC 37.4 g/dL H g/dL (32.4-36.7) RDW 13.5 % % (11.5-15.2) Plt Count 183 10^3/uL 10^3/uL (150-400) MPV 9.7 fL fL (8.7-11.7) Neut % (Auto) 32.6 % L % (39.3-74.2) Lymph % (Auto) 54.9 % H % (15.0-45.0) [place] % (Auto) 6.5 % % (4.5-13.0) Eos % (Auto) 2.9 % % (0.6-7.6) Baso % (Auto) 2.9 % H % (0.3-1.7) Nucleat RBC Rel Count 0.0 % % (0.0-0.2) Absolute Neuts (auto) 1.80 10^3/uL 10^3/uL (1.70-6.50) Absolute Lymphs (auto) 3.03 10^3/uL H 10^3/uL (1.00-3.00) Absolute Monos (auto) 0.36 10^3/uL 10^3/uL (0.30-0.80) Absolute Eos (auto) 0.16 10^3/uL 10^3/uL (0.03-0.40) Absolute Basos (auto) 0.16 10^3/uL H 10^3/uL (0.02-0.10) Absolute Nucleated RBC 0.00 10^3/uL 10^3/uL (0-0.01) Immature Gran % 0.2 % % (0.0-1.1) Immature Gran # 0.01 10^3/uL 10^3/uL (0.00-0.10) Turbidity 241 Sodium 135 mEq/L mEq/L (135-145) Potassium 4.3 mEq/L mEq/L (3.3-5.0) Chloride 100 mEq/L mEq/L (97-110) Carbon Dioxide 21 mEq/l L mEq/l (22-31) Anion Gap 14 mEq/L mEq/L (6-14) BUN 12 mg/dL mg/dL (7-23) Creatinine 0.9 mg/dL mg/dL (0.6-1.0) Estimated GFR > 60 Glucose 101 mg/dL H mg/dL (70-100) Calcium 8.5 mg/dL mg/dL (8.5-10.4) Total Bilirubin 0.8 mg/dL mg/dL (0.1-1.4) Conjugated Bilirubin 0.6 mg/dL H mg/dL (0.0-0.5) Unconjugated Bilirubin 0.2 mg/dL mg/dL (0.0-1.1) AST 419 IU/L H IU/L (14-46) ALT 226 IU/L H IU/L (9-52) Alkaline Phosphatase 222 IU/L H IU/L (38-126) Total Protein 8.2 g/dL g/dL (6.3-8.2) Albumin 3.7 g/dL g/dL (3.5-5.0) Specimen Hemolysis 133 Departure - Departure Disposition: Home, Routine, Self-Care Clinical Impression: Dyspnea Condition: Good Instructions: Dyspnea (ED) Additional Instructions: Your sodium level is normal today. Follow-up with your primary care physician. Referrals: ELIAS VICTOR [Other] - As per Instructions
[2018-05-02 20:04] VITALS: BP 122/99
--- NOTE | 2018-05-02 23:11 | CPEKG ---
Test Reason : OPEN Blood Pressure : / mmHG Vent. Rate : 088 BPM Atrial Rate : 089 BPM P-R Int : 158 ms QRS Dur : 086 ms QT Int : 377 ms P-R-T Axes : 043 056 048 degrees QTc Int : 457 ms Sinus rhythm Confirmed by Yudy Deleon ([id number]) on 05/02/2018 11:10:47 PM Referred By: Confirmed By:Yudy Deleon
== END 2018-05-02 20:02 | disposition home or self-care (01) ==
DX: R06.00 Dyspnea, unspecified (principal); I10 Essential (primary) hypertension; R79.89 Other specified abnormal findings of blood chemistry

== ENCOUNTER → 2018-08-25 | Outpatient (CLI) | payer BC | LOC: BMCIMAGING 12:36 | PROVIDERS: ATTEND Nurse Practitioner Adult Health | DX: Z12.31 Encounter for screening mammogram for malignant neoplasm of breast (principal) ==

== ENCOUNTER → 2018-09-05 | Outpatient (CLI) | payer BC | LOC: BMCIMAGING 10:37 | PROVIDERS: ATTEND Nurse Practitioner Adult Health | DX: R92.8 Other abnormal and inconclusive findings on diagnostic imaging of breast (principal); N60.01 Solitary cyst of right breast ==